=== PATIENT | female | born 1990 | race Caucasian/White ===

== ENCOUNTER 2018-08-24 16:09 | Emergency (ER) | payer OTHER ==
[~2018-08-24] VITALS: Ht 167.6 cm; Wt 84.4 kg
[2018-08-24 16:12] VITALS: BP 122/73
== END 2018-08-24 16:37 | disposition home or self-care (01) ==
LOC: ED 16:31
DX: K02.9 Dental caries, unspecified (principal); K04.7 Periapical abscess without sinus; Z91.040 Latex allergy status
CPT/HCPCS: 99283

== ENCOUNTER 2020-02-16 13:13 | Outpatient (CLI) | payer OTHER ==
[2020-02-16 13:50] LABS: ALANINE AMINOTRANSFERASE 20 U/L (12-78); ALBUMIN 3.6 g/dL (3.4-5.0); CHOLESTEROL, TOTAL 224 mg/dL (140-239); TRIGLYCERIDES 225 mg/dL (50-200)
[2020-02-16 13:54] LABS: ALKALINE PHOSPHATASE 55 U/L (45-117); BILIRUBIN,TOTAL 0.2 mg/dL (0.2-1.0); TOTAL PROTEIN 7.9 g/dL (6.4-8.2)
[2020-02-16 13:55] LABS: BILIRUBIN, DIRECT < 0.1 mg/dL (0.1-0.2); BILIRUBIN,INDIRECT 0.1 mg/dL (0.0-2.0)
== END 2020-02-16 23:59 | disposition home or self-care (01) ==
LOC: LAB 13:13
PROVIDERS: ATTEND Student in an Organized Health Care Education/Training Program
DX: Z51.81 Encounter for therapeutic drug level monitoring (principal); L70.0 Acne vulgaris
CPT/HCPCS: 36415; 80076; 82465; 84478; 84703

== ENCOUNTER 2020-03-19 15:11 | Outpatient (CLI) | payer OTHER ==
[2020-03-19 15:37] LABS: HCG UR SG 1.016 (1.003-1.030)
== END 2020-03-19 23:59 | disposition home or self-care (01) ==
LOC: LAB 15:11
PROVIDERS: ATTEND Student in an Organized Health Care Education/Training Program
DX: Z51.81 Encounter for therapeutic drug level monitoring (principal); L70.0 Acne vulgaris
CPT/HCPCS: 81025